=== PATIENT | female | born 2005 | race Caucasian/White ===

== ENCOUNTER → 2024-01-14 14:23 | Outpatient (CLI) | payer OTHER, MEDICAID, SELFPAY ==
[2024-01-14 14:48] LABS: Bilirubin Urine UA NEGATIVE (NEGATIVE); Color Urine UA YELLOW; Glucose Urine UA NEGATIVE (Negative); Ketones Urine UA NEGATIVE (NEGATIVE); Leukocyte Esterase Urine UA TRACE (NEGATIVE); Nitrite Urine UA NEGATIVE (Negative); Occult Blood Urine UA NEGATIVE (Negative); Protein Urine UA NEGATIVE (Negative); Urobilinogen Urine UA 0.2 E.U./dL (0.2)
[2024-01-14 14:49] LABS: Appearance Urine UA SL CLOUDY; Urine Volume 10mL (spun); pH Urine UA 5.5 (4.5-8.0)
[2024-01-14 14:55] LABS: Bacteria Urine Many (>30); Culture Indicated Urine Specimen Cultured; Mucus Urine 2+ (Negative); RBC Urine None Seen (0-5/HPF); Squamous Epithelial Cell Urine 10-30 /HPF (0-5/HPF); WBC Urine 1-5/HPF (0-5/HPF)
== END ==
PROVIDERS: Visit Provider Nurse Practitioner Family
DX: N89.8 Other specified noninflammatory disorders of vagina (principal)
CPT/HCPCS: 81001; 81002; 87086; 87210

== ENCOUNTER 2024-02-02 11:09 | Emergency (ER) | payer OTHER, MEDICAID, SELFPAY ==
[2024-02-02 11:14] VITALS: BP 120/77; PULSE 77; RESP 16; TEMP 36.7; O2SAT 100; BMI 22.6
--- NOTE | 2024-02-02 11:17 | DI.RAD.S_ITS ---
PROCEDURE: XR ANKLE RT MIN 3V INDICATIONS: fall, pain, swelling TECHNIQUE: 3 views of the ankle were acquired. COMPARISON: None. FINDINGS: Bones: No fractures or dislocations. Ankle mortise is normally aligned. No suspicious bony lesions. Soft tissues: No tibiotalar joint effusion. Achilles tendon appears normal. IMPRESSION: No acute bony abnormality or significant effusion. Approved by: Gato Hendrickson M.D. on 02/02/2024 at 11:08
--- NOTE | 2024-02-02 11:17 | DI.RAD.S_ITS ---
PROCEDURE: XR FOOT RT MIN 3V INDICATIONS: fall, pain, swelling TECHNIQUE: 3 views of the foot were acquired. COMPARISON: None. FINDINGS: Bones: No fractures or dislocations. No suspicious bony lesions. Soft tissues: No tibiotalar joint effusion. Achilles tendon appears normal. IMPRESSION: No acute bony abnormality. Approved by: Gato Hendrickson M.D. on 02/02/2024 at 11:10
--- NOTE | 2024-02-02 11:45 | PC.NURSE ---
PT endorses slipping/tripping on her right leg while intoxicated, landing with her right foot underneath her bottom. She was visiting family, took ibuprofen and used ice packs. Returned by airplane this morning, using a wheelchair through the airport. She reports unable to bare weight without severe pain 9/10. Numbness in right toes with minimal toe movement.
--- NOTE | 2024-02-02 11:50 | ED_ITS ---
HPI - Extremity Injury (Lower) <Virgie Driver PA-C - Last Filed: 02/02/24 14:46> General Chief Complaint: Extremity Injury, Lower Stated Complaint: hurt rt foot really swollen and blue Time Seen by Provider: 02/02/24 11:36 Source: patient Mode of arrival: Wheelchair History of Present Illness HPI Narrative: Patient is a 18-year-old female presenting for evaluation of pain in her right foot x2 days. She states that while in [place] 2 days ago she was walking and heels and tripped backwards. She states she did not hit her head, but she caught herself with her hands. She states that her right foot seemed to fold underneath her. She reports that she was able to get up and continue walking and heels that evening. She reports that she noticed some pain while getting in the [employer] driver's car later that evening then the next morning noticed increased swelling and bruising. She reports that this morning both her feet are quite cold and there some numbness of the tip of both of her right and left toes which she thinks may be related to the cold. Related Data Previous Rx's Medication Instructions Recorded albendazole 200 mg tablet 400 mg (2 x 200 mg) PO Q2W 04/08/23 enterobiasis #4 tabs Allergies Allergy/AdvReac Type Severity Reaction Status Date / Time No Known Drug Allergies Allergy Verified 02/02/24 11:14 Review of Systems <Virgie Driver PA-C - Last Filed: 02/02/24 14:46> Review of Systems Narrative: See HPI Patient History <Virgie Driver PA-C - Last Filed: 02/02/24 14:46> Social History Smoking Status: Never smoker Smoking Status: Never smoker Substance Use Type: marijuana Exam <Virgie Driver PA-C - Last Filed: 02/02/24 14:46> Initial Vital Signs Initial Vital Signs: Vital Signs Temperature 98.1 F 02/02/24 11:14 Pulse Rate 77 02/02/24 11:14 Respiratory Rate 16 02/02/24 11:14 Blood Pressure 120/77 02/02/24 11:14 Pulse Oximetry 100 02/02/24 11:14 Oxygen Delivery Method Room Air 02/02/24 11:14 GENERAL: 18 year old patient appears stated age. Well-developed patient, in no acute distress. HEAD: Atraumatic. Normocephalic. EYES: Pupils equal round No scleral icterus. No injection or drainage. NECK: Trachea midline, supple RESPIRATORY: Speaking comfortably normal tone of voice without any increased work of breathing. EXTREMITIES: Bilateral feet are quite cold to the touch and patient reports numbness of equal distribution starting at the MTPs and moving distally of all 5 toes on both feet. Patient's right foot has bruising along the lateral, dorsal aspect. She is quite tender to palpation over this area of bruising. She demonstrates decreased dorsiflexion and plantar flexion of her right foot compared to her left secondary to the pain on the dorsal lateral aspect of her right foot. No deformities palpated over metatarsals, patient appears to have point tenderness at the base of her 5th metatarsal, although she also demonstrates general tenderness to palpation of 3rd, 4th and 5th metatarsals. She demonstrates reduced eversion and inversion secondary to pain as well. Dorsalis pedis palpated 1+ and equal bilaterally. No tenderness to palpation of right knee or proximal tibia and fibula. NEURO: AOx3. SKIN: No rash or erythema of visible areas <Uzma Badillo DO - Last Filed: 02/03/24 19:49> Initial Vital Signs Initial Vital Signs: Vital Signs Temperature 98.1 F 02/02/24 11:14 Pulse Rate 77 02/02/24 11:14 Respiratory Rate 16 02/02/24 11:14 Blood Pressure 120/77 02/02/24 11:14 Pulse Oximetry 100 02/02/24 11:14 Oxygen Delivery Method Room Air 02/02/24 11:14 Course <Virgie Driver PA-C - Last Filed: 02/02/24 14:46> Orders Ordered: Discontinued Medications Ibuprofen (Ibuprofen 400 Mg Tablet) 600 mg PO NOW ONE Stop: 02/02/24 11:43 Last Admin: 02/02/24 12:06 Dose: Not Given Documented By: NELSON Ibuprofen (Ibuprofen 600 Mg Tablet) 600 mg PO NOW ONE Stop: 02/02/24 11:46 Last Admin: 02/02/24 12:06 Dose: 600 mg Documented By: NELSON Vital Signs Vital signs: Vital Signs - 8 hr 02/02/24 11:14 02/02/24 13:10 Temperature 98.1 F Pulse Rate 77 82 Respiratory Rate 16 99 H Blood Pressure 120/77 119/60 Pulse Oximetry 100 16 L Oxygen Delivery Method Room Air Room Air <Uzma Badillo DO - Last Filed: 02/03/24 19:49> Orders Ordered: Discontinued Medications Ibuprofen (Ibuprofen 400 Mg Tablet) 600 mg PO NOW ONE Stop: 02/02/24 11:43 Last Admin: 02/02/24 12:06 Dose: Not Given Documented By: NELSON Ibuprofen (Ibuprofen 600 Mg Tablet) 600 mg PO NOW ONE Stop: 02/02/24 11:46 Last Admin: 02/02/24 12:06 Dose: 600 mg Documented By: SPF Vital Signs Vital signs: Vital Signs - 8 hr 02/02/24 11:14 02/02/24 13:10 Temperature 98.1 F Pulse Rate 77 82 Respiratory Rate 16 99 H Blood Pressure 120/77 119/60 Pulse Oximetry 100 16 L Oxygen Delivery Method Room Air Room Air [facility] - Extremity Injury (Lower) <Virgie Driver PA-C - Last Filed: 02/02/24 14:46> Imaging Data Right foot x-ray: Radiologist's Impression: PROCEDURE: XR FOOT RT MIN 3V INDICATIONS: fall, pain, swelling TECHNIQUE: 3 views of the foot were acquired. COMPARISON: None. FINDINGS: Bones: No fractures or dislocations. No suspicious bony lesions. Soft tissues: No tibiotalar joint effusion. Achilles tendon appears normal. IMPRESSION: No acute bony abnormality. Approved by: Gato Hendrickson M.D. on 02/02/2024 at 11:10 Right ankle x-ray: Radiologist's Impression: PROCEDURE: XR ANKLE RT MIN 3V INDICATIONS: fall, pain, swelling TECHNIQUE: 3 views of the ankle were acquired. COMPARISON: None. FINDINGS: Bones: No fractures or dislocations. Ankle mortise is normally aligned. No suspicious bony lesions. Soft tissues: No tibiotalar joint effusion. Achilles tendon appears normal. IMPRESSION: No acute bony abnormality or significant effusion. Approved by: Gato Hendrickson M.D. on 02/02/2024 at 11:08 [facility] Narrative Medical decision making narrative: Patient is a 18-year-old female presenting for evaluation of right foot pain after a fall onto her right foot 2 days ago. She states she was initially weight-bearing after the incident, then had increased pain and swelling reducing her ability to walk over the next day. Exam does show bruising over 3rd 4th and 5th metatarsals on the dorsal lateral aspect of her right foot with no extension of the toes. She does report some numbness which is equal bilaterally in her feet are quite cold. A warm blanket was provided to help warm up her feet to reassess sensation after warming. Dorsalis pedis 1+ equal bilaterally. X-rays of right foot and ankle show Suspicion for high ankle injury is low as patient had no tenderness to palpation of high ankle or right knee. Multiple etiologies for patient's symptoms considered including, but not limited to: High ankle sprain, ankle fracture, foot fracture, ankle sprain Patient has been given treatment with 600 mg of ibuprofen and a warm blanket over bilateral feet. Patient reports improvement in her sensation after warming of her feet. X-rays did not show any evidence of fracture in right ankle or foot. Discussed with patient that her history and physical exam along with imaging are consistent with a sprain of her right foot. Recommend that she use a postop shoe and Mello wrap and crutches if needed for stabilization. I recommend that she follow up with her PCP in a week for re-evaluation to make sure that her symptoms are improving without complication. I recommend she keep her right foot elevated when at rest to reduce swelling and continue compression with an Mello wrap. Discussed with patient that if she should experience worsening numbness in her right toes, she May 1st try warming her toes, loosening the Mello wrap, but if she experiences severe pain numbness or other concerning signs or symptoms, she is to follow up in the ER. Patient's symptoms improved over duration of stay with above-stated therapies. Findings and discharge diagnosis discussed with patient/family followed by verbalization of understanding Return precautions discussed with patient/family whom verbalize understanding of diagnosis and plan Discharge Plan Departure Patient Disposition: Home Clinical Impression: Sprain of foot, right Qualifiers: Encounter type: initial encounter Qualified Code(s): S93.601A - Unspecified sprain of right foot, initial encounter Instructions: DI for Foot Sprain Activity Restrictions/Additional Instructions: Thank you for coming in today for your care. Thankfully, x-rays of both your right foot and right ankle did not show any evidence of fracture. Your symptoms today are consistent with a sprain of your right foot. I recommend that you support this area with a flat postop shoe and use an Mello wrap for compression. We discussed that if you should noticed tingling in your toes after application of the Mello wrap, I recommend that you loosen the compression to ensure good circulation. I recommend that you make a follow up appointment with your primary care provider in the next week to make sure that your symptoms are improving. While at rest, you can have the shoe off, keep your right foot elevated on a pillow and do foot flexing and pointing stretches to reduce stiffness in your joint. You may bear weight on your right foot as tolerated. Please follow up in the ER immediately if you should develop severe pain, or numbness in your right foot without any improvement after warming or loosening of Mello wrap compression or other concerning signs or symptoms. *Please follow up with your primary care provider in a week, call for an appointment. Let them know you were seen in the Emergency Department and that we ask that you be seen in follow up. We will electronically transmit a record of today's note if your PCP is in our system *If you do not have a primary care provider please contact the [facility] Resource line at [phone]. They will ask some questions about your medical history and help get you set up with a doctor in the community. Prescriptions: No Action albendazole 200 mg tablet 400 mg PO Q2W Qty: 4 0RF Rx Instructions: must administer with food, preferably a high-fat meal, take two tablets on day 1, and take two tablets on day 14 Referrals: Miscellaneous,Doctor, MD [Primary Care Provider] - Stand Alone Forms: Patient Portal/API, Work Release Note ED Sign-out <Uzma Badillo DO - Last Filed: 02/03/24 19:49> Cosign ED Attending Shar Attestation: I was immediately available in the department for consultation.
[2024-02-02] MEDS: IBUPROFEN 600 MG TABLET PO (12:06)
[2024-02-02 13:10] VITALS: BP 119/60; PULSE 82; RESP 99; O2SAT 16
== END 2024-02-02 13:12 | disposition home or self-care (01) ==
PROVIDERS: Emergency Provider Physician Assistant
DX: S93.601A Unspecified sprain of right foot, initial encounter (principal); W01.0XXA Fall on same level from slipping, tripping and stumbling without subsequent striking against object, initial encounter
CPT/HCPCS: 73610; 73630; 99283

== ENCOUNTER → 2024-02-11 17:15 | Outpatient (CLI) | payer OTHER, MEDICAID, SELFPAY ==
--- NOTE | 2024-02-11 17:17 | DI.RAD.S_ITS ---
PROCEDURE: XR FOOT RT MIN 3V INDICATIONS: Right foot and ankle injury TECHNIQUE: 3 views of the foot were acquired. COMPARISON: [facility], , XR FOOT RT MIN 3V, 02/02/2024, 11:18. FINDINGS: Bones: No fractures or dislocations. No suspicious bony lesions. Soft tissues: No tibiotalar joint effusion. Achilles tendon appears normal. IMPRESSION: No acute bony abnormality. Dictated by: Tania Pillai M.D. on 02/11/2024 at 18:18 Approved by: Tania Pillai M.D. on 02/11/2024 at 18:18
--- NOTE | 2024-02-11 17:17 | DI.RAD.S_ITS ---
PROCEDURE: XR ANKLE RT MIN 3V INDICATIONS: Right foot and ankle injury TECHNIQUE: 3 views of the ankle were acquired. COMPARISON: [facility], CR, XR ANKLE RT MIN 3V, 02/02/2024, 11:18. FINDINGS: Bones: No fractures or dislocations. Ankle mortise is normally aligned. No suspicious bony lesions. Soft tissues: Trace tibiotalar joint effusion. Achilles tendon appears normal. IMPRESSION: No acute bony abnormality. If clinical symptoms persist or clinical suspicion for pathology is high, a repeat examination in 7-10 days, or advanced imaging such as CT or MRI is suggested for further evaluation. Dictated by: Tania Pillai M.D. on 02/11/2024 at 17:59 Approved by: Tania Pillai M.D. on 02/11/2024 at 18:00
== END ==
PROVIDERS: Referring Provider Physician Assistant Surgical; Visit Provider Physician Assistant Surgical
DX: S93.601A Unspecified sprain of right foot, initial encounter (principal); S99.921A Unspecified injury of right foot, initial encounter; X58.XXXA Exposure to other specified factors, initial encounter
CPT/HCPCS: 73610; 73630